=== PATIENT | male | born 1950 | race Caucasian/White ===

== ENCOUNTER 2016-04-02 05:52 | Day surgery (SDC) | payer MEDICARE, OTHER ==
[~2016-04-02] VITALS: Ht 185.4 cm; Wt 101.8 kg
[2016-04-02] VITALS (7 sets, daily range): BP systolic 115–146; BP diastolic 56–94; PULSE 59–80; TEMP 97.5–98
[2016-04-02] MEDS ORDERED: IMBRUVICA PO (06:23)
[2016-04-02] MEDS ORDERED: ZOFRAN ODT4 MG PO (11:29)
[2016-04-02] MEDS ORDERED: NORCO 325 MG-51 TAB PO (11:30)
== END 2016-04-02 14:20 | disposition home or self-care (01) ==
LOC: SDCO 05:52
DX: K43.2 Incisional hernia without obstruction or gangrene (principal)
CPT/HCPCS: C1781; J0330; J1100; J1885; J2270; J2405; J2704; J3010; J7120

== ENCOUNTER 2016-04-17 21:23 | Emergency (ER) | payer MEDICARE, OTHER ==
[~2016-04-17] VITALS: Ht 185.4 cm; Wt 101.8 kg
[~2016-04-17 21:23] MED LIST: IMBRUVICA PO; NORCO 325 MG-51 TAB PO; ZOFRAN ODT4 MG PO
[2016-04-17 21:28] VITALS: TEMP 98.1
[2016-04-17 22:21] LABS: HEMATOCRIT 43.1 % (42.0-52.0); HEMOGLOBIN 14.3 g/dl (13.5-18.0); MEAN CELL VOLUME 92 fl (80.0-100.0); MEAN CORPUSCULAR HEMOGLOBIN 31 pg (27.0-31.0); MEAN CORPUSCULAR HGB CONC 33 g/dl (33.0-37.0); MEAN PLATELET VOLUME 11.1 fl (7.4-10.4); PLATELET COUNT 163 K/mm3 (130-400); RED BLOOD COUNT 4.69 M/mm3 (4.20-5.60); REDCELL DISTRIBUTION WIDTH-CV 13.5 % (11.5-14.5); WHITE BLOOD COUNT 11.2 K/mm3 (4.8-10.8)
[2016-04-17 22:25] LABS: INR 1.2 (0.8-3.0); PROTHROMBIN TIME 12.9 SECONDS (9.7-12.8)
[2016-04-17 22:30] LABS: CALCIUM 8.7 mg/dL (8.4-10.2); CREATININE, serum 1.02 mg/dL (0.66-1.25); POTASSIUM 3.8 mmol/L (3.4-5.0)
[2016-04-17 22:31] LABS: ADD PATHOLOGY DIFF REVIEW NO
[2016-04-17 22:56] LABS: BAND 4 % (0-10); EOSINOPHIL 2 % (0-4); METAMYELOCYTE 2 % (0-0); NEUTROPHILS 53 % (42.0-75.2); PLATELET ESTIMATE NORMAL (NORMAL); TOTAL CELLS COUNTED 100
[2016-04-17 23:32] VITALS: BP 135/89; PULSE 76
== END 2016-04-17 23:33 | disposition home or self-care (01) ==
LOC: COL.ER 21:23
PROVIDERS: Emergency Medicine
DX: M96.841 Postprocedural hematoma of a musculoskeletal structure following other procedure (principal)